=== PATIENT | female | born 1985 | race Caucasian/White ===

== ENCOUNTER 2017-11-28 13:21 | Day surgery (SDC) | payer BC, OTHER ==
[2017-11-28 13:52] LABS: #Basophils 0.1 thou/uL (0.0-0.2); #Eosinphils 0.2 thou/uL (0.0-0.7); #Lymphocytes 2.1 thou/uL (1.20-3.40); #Monocytes 0.7 thou/uL (0.11-0.59); #Neutrophils 8.2 thou/uL (1.40-6.50); %Basophils 0.9 % (0.0-1.0); %Eosinophils 1.6 % (0.0-10.0); %Lymphocytes 18.3 % (21.0-51.0); %Monocytes 6.1 % (0.0-10.0); Hemoglobin 14.4 g/dL (12.0-16.0); Mean Corpuscular HGB CONC 33.6 g/dL (32.0-36.0); Mean Corpuscular Hemoglobin 30.5 pg (27.0-31.0); Mean Platelet Volume 7.5 fL (7.4-10.4); Platelet Count 260 thou/uL (130-400); RBC Distribution Width 11.9 % (11.5-14.5); Red Blood Cell (RBC) Count 4.71 mill/uL (4.20-5.40); White Blood Cell (WBC) Count 11.3 thou/uL (4.8-10.8)
[2017-11-28 14:17] LABS: ALT (SGPT) 41 U/L (8-55); AST (SGOT) 27 U/L (5-34); Albumin 3.9 g/dL (3.5-5.0); Alkaline Phosphatase 48 U/L (40-150); Anion Gap 13 mmol/L (10-20); BUN (Urea Nitrogen) 9 mg/dL (7.0-18.7); Bilirubin, Total 0.3 mg/dL (0.2-1.2); Calc. Creatinine Clearance 0 mL/min (70-130); Calcium 9.9 mg/dL (7.8-10.44); Carbon Dioxide 25 mmol/L (22-29); Chloride 102 mmol/L (98-107); Estimated GFR-MDRD Greater than 90; Globulin 3.3 g/dL (2.4-3.5); Glucose 81 mg/dL (70-105); Potassium 3.5 mmol/L (3.5-5.1); Protein, Total 7.2 g/dL (6.0-8.3); Sodium 136 mmol/L (136-145)
[2017-11-28 14:55] VITALS: BMI 28.5
[2017-11-28] MEDS ORDERED: FLU VACC QS2017-18 36 mo. & older 0.5 ML SYRINGE IM ONE (16:00)
--- NOTE | 2017-11-28 19:03 | SS ---
DATE OF SERVICE: 11/28/2017 EVALUATING PHYSICIAN: Stuart Connolly M.D. REGULAR PHYSICIAN: [facility]. CHIEF COMPLAINT: Vaginal bleeding. HISTORY OF PRESENT ILLNESS: Ms. Coleman is a 32-year-old G2, P1-0-0-1 with an estimated date of confi nement of 04/04/2018, now at 21 weeks who presents complaining of vaginal spotting when she wipes and uses the restroom. She states she had intercourse last night. She denies bright red vaginal bleedi ng, ruptured membranes, or abdominal pain. Her care has been at the Clinic and has been reportedly uncomplicated. She had an ultrasound 2 weeks ago, which I have a copy and there wer e no problems with the ultrasound and her placenta was noted to be anterior. PAST OBSTETRICAL HISTORY: Remarkable for previous vaginal delivery 10 years ago. PAST MEDICAL HISTORY: Unremarkable. PAST SURGICAL HISTORY: None. CURRENT MEDICATIONS: vitamins. ALLERGIES: BACTRIM. SOCIAL HISTORY: She denies tobacco or alcohol use. PHYSICAL EXAMINATION: VITAL SIGNS: Stable. She is afebrile. ABDOMEN: Soft and nontender. There is no guarding or rebound. The fundus is just above the umbilic us and is nontender. GENITOURINARY: Sterile speculum exam shows a small amount of dark blood in the vault. There is no a ctive bleeding. CERVIX: The cervix is visually closed. On bimanual exam, the cervix is noted to be closed and high in the vault. heart tones are noted. No uterine activity is seen. GEOSCIENCE PROFESSOR-3 testing returns with a negative result for Trichomonas, Gardnerella and Belinda. ASSESSMENT: 1. A 21-week intrauterine . 2. Postcoital bleeding. 3. No evidence of ruptured membranes or labor. PLAN: The patient will be dismissed home now with precautions. These were reviewed with her in [facility]. She was told to follow up with the clinic at her next appointment. She voiced understanding of her discharge instructions and was sent home in good condition.
== END 2017-11-28 16:55 | disposition home or self-care (01) ==
LOC: ERS 13:21 → L&D/OP 14:06 → ER/OP 14:06 → L&D/OP 16:55
PROVIDERS: ATTEND Obstetrics & Gynecology
DX: O46.92 Antepartum hemorrhage, unspecified, second trimester (principal); Z79.899 Other long term (current) drug therapy; Z88.2 Allergy status to sulfonamides; Z88.8 Allergy status to other drugs, medicaments and biological substances; Z3A.21 21 weeks gestation of pregnancy
CPT/HCPCS: 36415; 80053; 84702; 85025; 87480; 87510; 87660; 99284

== ENCOUNTER 2018-01-21 18:04 | Day surgery (SDC) | payer OTHER ==
--- NOTE | 2018-01-21 19:11 | PDOC.LDHP ---
Labor and Delivery H&P Chief complaint: loss of fluid HPI: 32 yo @ 29w4d by LMP c/w 9w US presents for fluid leaking since Sunday night. She states that the fluid is colorless and odorless. She states that it hasn't increased, but consistently occurs when she lays down. She states that she has been wetting her underwear each time she lays down. She states she has not had intercourse since November per medical office. She states she has not had any vaginal bleeding. She does admit to movement. She denies headaches , abdominal pain, lower extremity swelling, or vision changes. No other complaints at this time. Current gestational age (weeks): 29 (29.4) Due date: 04/05/18 Dating criteria: last menstrual period Grav: 2 Para: 1 Current complications: none Abnormal US findings: No Current medications: pre-bjorn vitamins Social history: none - Physical Exam Vital signs reviewed and normal: yes General: NAD, resting Heart: RRR Lungs: nonlabored breathing Abdomen: NTTP Extremeties: no edema FHT: category 1 [place] contractions every: 2-3 min - Vaginal Exam cm dilated: 0 (Fingertip) Effacement: 90% Station: -2 - OB Labs Antibody Screen: negative HIV: negative RPR: negative HEPSAg: negative 1 hour GCT: negative GBS: negative Urine drug screen: not done Rubella: immune - Assessment L&D Assessment: labor 32 yo @ 29.4 wk by LMP c/w 9.0 wk US presents for loss of fluid 1. Labor rule out Premature ROM - Amnisure - Fibronectin - VP3 - UA - Transvaginal US - Will await results and make treatment changes from there. - Plan Plan: observation in L&D <Shukri Solis - Last Filed: 01/21/18 20:47> <Romina Melendez - Last Filed: 01/21/18 23:58> Allergies/Adverse Reactions: Allergies Allergy/AdvReac Type Severity Reaction Status Date / Time sulfamethoxazole Allergy Severe Verified 11/28/17 14:52 [From Bactrim] trimethoprim [From Bactrim] Allergy Severe Verified 11/28/17 14:52 Latex, Natural Rubber Allergy Verified 01/21/18 18:53 Attending Addendum - Attending Addendum Date/Time: 01/21/18 [id number] I personally evaluated the patient and discussed the management with Dr. Solis on 01/21/18. I agree with the History, Examination, Assessment and Plan documented above with any addition or exceptions noted below. Patient presents with concern for SROM and PTL. Cat 1 FHTs, CTX q2-3. Cervical length 3.5 with neg FFN, Amnisure negative with normal ASHWIN. SVE shows thin clear discharge, no blood or pooling, / which remained unchanged. UA unremarkable and VP3 still pending. Patient declined GC/CT, recommend as outpatient when follows up with PCP. PTL and SROM ruled out, likely physiologic discharge and dehydration causing Florence Hansen. Monitor closely as an outpatient. Will follow up on VP3 when results. <Romina Melendez - Last Filed: 01/21/18 23:58>
[2018-01-21 19:26] VITALS: BP 118/64; TEMP 99.1; BMI 29.7
[2018-01-21] MEDS ORDERED: Lactated Ringer's 1,000 ML IV SCH (19:45)
[2018-01-21 20:08] LABS: Bilirubin Negative (Negative); Blood, Urine Negative (Negative); Clarity TURBID (Clear); Glucose, Urine (Dipstick) Negative (Negative); Leukocyte Negative (Negative); Nitrite Negative (Negative); Protein, Urine (Dipstick) Negative (Neg-Trace); Specific Gravity, Urine 1.016 (1.002-1.036); Urobilinogen 0.2 mg/dL (0.2-1.0); pH, Urine 7.5 (5.0-9.0)
[2018-01-21 20:10] LABS: Bacteria/HPF None Seen HPF (None Seen); Hyaline Casts/LPF 4-6 HYALINE CAST LPF (0-3 Hyaline); Pathc Cast-AUWi Flag 0.58 (0-2.49); RBC/HPF 0-3 HPF (0-3); WBC/HPF 0-3 HPF (0-3)
[2018-01-21 20:19] LABS: Crystals/HPF 2+ AMORPH PHOS HPF (Negative); Renal Epithelial 0-3 HPF (0-3); Transitional Epithelial 0-3 HPF (0-3)
[2018-01-21 20:20] LABS: Amnisure Internal Control QC ACCEPTABLE (ACCEPTABLE); Amnisure Test No Membranes Rupture (No Rupture)
[2018-01-21 20:32] LABS: FFN Internal QC Analyzer PASS (PASS); FFN Internal QC Cassette PASS (PASS); Fetal Fibronectin Negative (Negative)
--- NOTE | 2018-01-21 21:15 | ULT ---
OB ULTRASOUND LIMITED: HISTORY: Loss of fluid. Presents for fluid leaking since Sunday. TECHNIQUE: Sagittal and transverse imaging of a gravid uterus is performed. FINDINGS: Single intrauterine gestation, vertex presentation. Limited evaluation of the cervix due to shadowin g. The cervix appears to be approximately 3.5 cm. Anterior placenta. No evidence of previa. heart tones with a rate of 152 beats per minute. Amniotic fluid index is 14.6 cm. BIOMETRY: BPD: 7.85 cm (31 weeks 4 days) HEAD CIRCUMFERENCE: 28.70 cm (31 weeks 4 days) ABDOMINAL CIRCUMFERENCE: 25.97 cm (30 weeks 1 day) FEMUR LENGTH: 5.54 cm (29 weeks 1 day) AVERAGE AGE BY SONOGRAPHY: 30 weeks 3 days. ESTIMATED DATE OF DELIVERY: 03/29/2018 ESTIMATED WEIGHT: 1504 g, plus or minus 223 g. Limited survey due to advanced gestational age. Bladder and three-vessel cord appear to be marcelina ntified. Four-chamber heart is noted. IMPRESSION: 1. Single gestation with heart tones. Average age by sonography is 30 weeks 3 days. 2. Amniotic fluid index is 14.6 cm, which is near the median for a gestational age of 30 weeks. 3. Cervical length is somewhat difficult to appreciate but appears to be approximately 3.4 cm. POS: [facility]
== END 2018-01-21 22:01 | disposition home or self-care (01) ==
LOC: L&D/OP 18:04
PROVIDERS: ATTEND Family Medicine
DX: O26.893 Other specified pregnancy related conditions, third trimester (principal); Z3A.29 29 weeks gestation of pregnancy; Z79.899 Other long term (current) drug therapy; Z88.2 Allergy status to sulfonamides; Z88.1 Allergy status to other antibiotic agents; Z91.040 Latex allergy status
CPT/HCPCS: 51701; 76815; 81001; 82731; 84112; 87480; 87510; 87660; 99285

== ENCOUNTER 2018-08-08 07:18 | Emergency (ER) | payer OTHER, SELFPAY ==
[2018-08-08 07:56] LABS: #Eosinphils 0.2 thou/uL (0.0-0.7); #Monocytes 0.7 thou/uL (0.11-0.59); %Basophils 0.5 % (0.0-1.0); %Eosinophils 1.9 % (0.0-10.0); %Monocytes 8.8 % (0.0-10.0); %Neutrophils 50.8 % (42.0-75.0); Hemoglobin 16.4 g/dL (12.0-16.0); Mean Corpuscular HGB CONC 33.7 g/dL (32.0-36.0); Mean Corpuscular Hemoglobin 30.7 pg (27.0-31.0); Mean Corpuscular Volume 91.2 fL (78.0-98.0); Mean Platelet Volume 7.7 fL (7.4-10.4); Platelet Count 335 thou/uL (130-400); RBC Distribution Width 11.6 % (11.5-14.5); Red Blood Cell (RBC) Count 5.34 mill/uL (4.20-5.40); White Blood Cell (WBC) Count 7.8 thou/uL (4.8-10.8)
[2018-08-08 07:57] LABS: Hyaline Casts/LPF 0-3 HYALINE CAST LPF (0-3 Hyaline); Pathc Cast-AUWi Flag 0.43 (0-2.49); Yeast-AUWi Flag 61.7 (0-25.0)
[2018-08-08 07:58] LABS: Bilirubin Unable to Interpret (Negative); Blood, Urine Unable to Interpret (Negative); Clarity Hazy (Clear); Glucose, Urine (Dipstick) Unable to Interpret mg/dL (Negative); Leukocyte Unable to Interpret (Negative); Nitrite Unable to Interpret (Negative); Protein, Urine (Dipstick) Unable to Interpret mg/dL (Neg-Trace); Urobilinogen UNABLE TO INTERPRET mg/dL (0.2-1.0)
[2018-08-08 08:07] LABS: Bacteria/HPF 1+ HPF (None Seen); RBC/HPF 0-3 HPF (0-3); Renal Epithelial 0-3 HPF (0-3); Specific Gravity, Urine 1.007 (1.002-1.036); Squamous Epithelial 0-3 HPF (0-3); Transitional Epithelial 0-3 HPF (0-3)
[2018-08-08 08:08] LABS: Pregnancy Test - Urine (BHCG) Negative (Negative); Pregu Control Background? CLEAR/WHITE (CLR/WHITE); Pregu Control Bar Appear? YES (CONTROL BAR); Specific Gravity 1.007 (1.002-1.036); Yeast-All Forms None Seen HPF (None Seen)
[2018-08-08 08:10] LABS: ALT (SGPT) 27 U/L (8-55); AST (SGOT) 23 U/L (5-34); Albumin 4.5 g/dL (3.5-5.0); Alkaline Phosphatase 58 U/L (40-150); Anion Gap 13 mmol/L (10-20); BUN (Urea Nitrogen) 16 mg/dL (7.0-18.7); Bilirubin, Total 0.6 mg/dL (0.2-1.2); Calc. Creatinine Clearance 0 mL/min (70-130); Calcium 9.6 mg/dL (7.8-10.44); Carbon Dioxide 26 mmol/L (22-29); Chloride 103 mmol/L (98-107); Estimated GFR-MDRD Greater than 90; Globulin 3.3 g/dL (2.4-3.5); Glucose 98 mg/dL (70-105); Potassium 3.6 mmol/L (3.5-5.1); Protein, Total 7.8 g/dL (6.0-8.3); Sodium 138 mmol/L (136-145)
[2018-08-08] MEDS ORDERED: Ondansetron PF 4 MG/2 ML Vial ONE (08:41)
[2018-08-08] MEDS ORDERED: Morphine 4 MG/ML VIAL ONE (08:43)
[2018-08-08] MEDS ORDERED: Metoclopramide HCl 10 MG/2 ML VIAL ONE (09:19)
--- NOTE | 2018-08-08 10:31 | CT ---
CT ABDOMEN AND PELVIS WITH IV CONTRAST: Date: 08/08/18 HISTORY: Left lower abdominal pain and left flank pain associated with hematuria, nausea, and vomiting. FINDINGS: The lung bases are clear. The liver, spleen, pancreas, adrenal glands, and right kidney are normal. N o calcified gallstones are seen. There is asymmetric delay of enhancement of the left kidney compared to the right, with left hydroure teronephrosis secondary to a 4.0 mm calculus in the left distal ureter close to the UVJ. No right-ramila ed hydroureteronephrosis is seen. No free air, free fluid, or lymphadenopathy is noted in the abdomen or pelvis. A normal appearing eulogio endix is noted. Uterus and ovaries are present. IMPRESSION: 4.0 mm obstructing left distal ureteric calculus. POS: C
[2018-08-08] MEDS ORDERED: Ketorolac Tromethamine 30 MG/ML VIAL ONE (11:06)
[2018-08-08] MEDS ORDERED: Iopamidol 370 76% 100 ML VIAL ONE (16:19)
[2018-08-12 01:02] LABS: Chlamydia by PCR Inconclusive (NotDetected); GC by PCR Inconclusive (NotDetected)
== END 2018-08-08 11:51 | disposition home or self-care (01) ==
LOC: ERS 07:18
DX: N13.2 Hydronephrosis with renal and ureteral calculous obstruction (principal); R11.0 Nausea
CPT/HCPCS: 36415; 74177; 80053; 81003; 81015; 81025; 85025; 87086; 87480; 87491; 87510; 87591; 87660; 96365; 96366; 96375; J1885; J2270; J2405; J2765

== ENCOUNTER 2018-08-10 02:48 | Emergency (ER) | payer SELFPAY ==
[2018-08-10 03:20] LABS: #Eosinphils 0.1 thou/uL (0.0-0.7); #Lymphocytes 2.3 thou/uL (1.20-3.40); #Monocytes 0.6 thou/uL (0.11-0.59); #Neutrophils 10.8 thou/uL (1.40-6.50); %Basophils 0.2 % (0.0-1.0); %Eosinophils 0.6 % (0.0-10.0); %Lymphocytes 16.7 % (21.0-51.0); %Monocytes 4.3 % (0.0-10.0); %Neutrophils 78.2 % (42.0-75.0); Hemoglobin 16.4 g/dL (12.0-16.0); Mean Corpuscular HGB CONC 33.9 g/dL (32.0-36.0); Mean Corpuscular Hemoglobin 31.2 pg (27.0-31.0); Mean Corpuscular Volume 92.3 fL (78.0-98.0); Platelet Count 335 thou/uL (130-400); RBC Distribution Width 11.6 % (11.5-14.5); Red Blood Cell (RBC) Count 5.24 mill/uL (4.20-5.40); White Blood Cell (WBC) Count 13.8 thou/uL (4.8-10.8)
[2018-08-10 03:20] LABS: Bilirubin Negative (Negative); Blood, Urine Trace (Negative); Clarity Hazy (Clear); Glucose, Urine (Dipstick) Negative (Negative); Leukocyte Negative (Negative); Nitrite Negative (Negative); Protein, Urine (Dipstick) Negative (Neg-Trace); Urobilinogen 0.2 mg/dL (0.2-1.0); pH, Urine 8.5 (5.0-9.0)
[2018-08-10 03:21] LABS: Bacteria/HPF Rare-Few HPF (None Seen); Pathc Cast-AUWi Flag 0.43 (0-2.49); RBC/HPF 0-3 HPF (0-3)
[2018-08-10 03:28] LABS: Crystals/HPF 2+ AMORPH PHOS HPF (Negative); Hyaline Casts/LPF NONE SEEN LPF (0-3 Hyaline)
[2018-08-10] MEDS ORDERED: Morphine 4 MG/ML VIAL ONE (03:28)
[2018-08-10] MEDS ORDERED: Ondansetron PF 4 MG/2 ML Vial ONE (03:28)
[2018-08-10 03:41] LABS: ALT (SGPT) 23 U/L (8-55); AST (SGOT) 19 U/L (5-34); Albumin 4.7 g/dL (3.5-5.0); Alkaline Phosphatase 56 U/L (40-150); Anion Gap 11 mmol/L (10-20); BUN (Urea Nitrogen) 11 mg/dL (7.0-18.7); Bilirubin, Total 0.4 mg/dL (0.2-1.2); Calc. Creatinine Clearance 0 mL/min (70-130); Calcium 10.1 mg/dL (7.8-10.44); Carbon Dioxide 28 mmol/L (22-29); Chloride 102 mmol/L (98-107); Estimated GFR-MDRD 90; Globulin 3.4 g/dL (2.4-3.5); Glucose 137 mg/dL (70-105); Potassium 4.2 mmol/L (3.5-5.1); Protein, Total 8.1 g/dL (6.0-8.3); Sodium 137 mmol/L (136-145)
[2018-08-10] MEDS ORDERED: Ketorolac Tromethamine 30 MG/ML VIAL ONE (03:53)
== END 2018-08-10 04:57 | disposition home or self-care (01) ==
LOC: ERS 02:48
DX: N23 Unspecified renal colic (principal)
CPT/HCPCS: 36415; 80053; 81003; 81015; 85025; 87086; 96361; 96374; 96375; J1885; J2270; J2405

== ENCOUNTER 2020-12-22 09:40 | Emergency (ER) | payer OTHER, SELFPAY ==
[2020-12-22] MEDS ORDERED: Boostrix 0.5 ML (Tdap) VIAL ONE (10:34)
[2020-12-22] MEDS ORDERED: Bacitracin 1 PK ONE (10:57)
== END 2020-12-22 11:00 | disposition home or self-care (01) ==
LOC: ERS 09:40
DX: S61.451A Open bite of right hand, initial encounter (principal); W54.0XXA Bitten by dog, initial encounter
CPT/HCPCS: 90471; 90715

== ENCOUNTER 2021-06-24 10:25 | Emergency (ER) | payer OTHER ==
[2021-06-24 12:45] LABS: ALT (SGPT) 36 U/L (8-55); AST (SGOT) 35 U/L (5-34); Albumin 4.2 g/dL (3.5-5.0); Alkaline Phosphatase 45 U/L (40-110); Anion Gap 14 mmol/L (10-20); BUN (Urea Nitrogen) 7 mg/dL (7.0-18.7); Bilirubin, Total 0.3 mg/dL (0.2-1.2); Calc. Creatinine Clearance 0 mL/min (70-130); Calcium 8.7 mg/dL (7.8-10.44); Carbon Dioxide 26 mmol/L (22-29); Chloride 103 mmol/L (98-107); Globulin 3.2 g/dL (2.4-3.5); Glucose 116 mg/dL (70-105); Protein, Total 7.4 g/dL (6.0-8.3); Sodium 139 mmol/L (136-145)
[2021-06-24 12:47] LABS: #Lymphocytes 1.6 thou/uL (1.20-3.40); #Monocytes 0.3 thou/uL (0.11-0.59); #Neutrophils 2.7 thou/uL (1.40-6.50); %Basophils 0.1 % (0.0-1.0); %Eosinophils 0.5 % (0.0-10.0); %Lymphocytes 34.4 % (21.0-51.0); %Monocytes 5.6 % (0.0-10.0); %Neutrophils 59.4 % (42.0-75.0); Hemoglobin 17.1 g/dL (12.0-16.0); Mean Corpuscular HGB CONC 34.9 g/dL (32.0-36.0); Mean Corpuscular Hemoglobin 32.1 pg (27.0-31.0); Mean Platelet Volume 8.6 fL (7.4-10.4); Platelet Count 144 thou/uL (130-400); RBC Distribution Width 11.9 % (11.5-14.5); Red Blood Cell (RBC) Count 5.31 mill/uL (4.20-5.40); White Blood Cell (WBC) Count 4.5 thou/uL (4.8-10.8)
[2021-06-24 16:47] LABS: SARS-CoV-2 PCR by NAA DETECTED (NotDetected)
== END 2021-06-24 12:58 | disposition home or self-care (01) ==
LOC: ERS 10:25
DX: U07.1 COVID-19 (principal); J12.82 Pneumonia due to coronavirus disease 2019; J45.909 Unspecified asthma, uncomplicated
CPT/HCPCS: 71045; 80053; 85025; U0003; U0005

== ENCOUNTER 2022-12-30 00:19 | Emergency (ER) | payer OTHER, SELFPAY ==
[2022-12-30 00:51] LABS: Bacteria/HPF 2+ HPF (None Seen); Bilirubin Negative (Negative); Blood, Urine Negative (Negative); Calcium Oxalate Crystals 3+ HPF (None Seen); Clarity Turbid (Clear); Glucose, Urine (Dipstick) Normal (Negative); Ketone, Urine Negative (Negative); Leukocyte 500 Leu/uL (Negative); Mucous/LPF Rare LPF (<2+); Nitrite Negative (Negative); Protein, Urine (Dipstick) 20 mg/dL (Neg-Trace); RBC/HPF 0-3 HPF (0-3); Specific Gravity, Urine 1.028 (1.002-1.036); WBC/HPF Greater than 50 HPF (0-3); pH, Urine 6.5 (5.0-9.0)
[2022-12-30 00:52] LABS: Pregnancy Test - Urine (BHCG) Negative (Negative); Pregu Control Background? CLEAR/WHITE (CLR/WHITE); Pregu Control Bar Appear? YES (CONTROL BAR); Specific Gravity 1.028 (1.002-1.036)
[2022-12-30 01:50] LABS: #Eosinphils 0.2 thou/uL (0.0-0.7); #Lymphocytes 1.2 thou/uL (1.20-3.40); %Basophils 0.3 % (0.0-1.0); %Eosinophils 1.2 % (0.0-10.0); %Lymphocytes 8.2 % (21.0-51.0); %Neutrophils 83.5 % (42.0-75.0); Hemoglobin 16.1 g/dL (12.0-16.0); Mean Corpuscular HGB CONC 34.5 g/dL (32.0-36.0); Mean Corpuscular Hemoglobin 31.3 pg (27.0-31.0); Mean Corpuscular Volume 90.7 fl (78.0-98.0); Mean Platelet Volume 8.2 fL (7.4-10.4); Platelet Count 218 10x3/uL (130-400); RBC Distribution Width 11.7 % (11.5-14.5); Red Blood Cell (RBC) Count 5.14 mill/uL (4.20-5.40); White Blood Cell (WBC) Count 14.3 10x3/uL (4.8-10.8)
[2022-12-30 02:15] LABS: ALT (SGPT) 23 U/L (8-55); AST (SGOT) 20 U/L (5-34); Albumin 4.2 g/dL (3.5-5.0); Alkaline Phosphatase 46 U/L (40-110); Anion Gap 10 mmol/L (10-20); BUN (Urea Nitrogen) 11 mg/dL (7.0-18.7); Bilirubin, Total 0.5 mg/dL (0.2-1.2); Calc. Creatinine Clearance 0 mL/min (70-130); Calcium 9.1 mg/dL (7.8-10.44); Carbon Dioxide 26 mmol/L (22-29); Chloride 106 mmol/L (98-107); Estimated GFR 117; Globulin 3.2 g/dL (2.4-3.5); Glucose 88 mg/dL (70-105); Lipase 55 U/L (8-78); Potassium 3.4 mmol/L (3.5-5.1); Protein, Total 7.4 g/dL (6.0-8.3); Sodium 139 mmol/L (136-145)
== END 2022-12-30 04:28 ==
LOC: ERS 00:19
DX: Z53.21 Procedure and treatment not carried out due to patient leaving prior to being seen by health care provider (principal)
CPT/HCPCS: 36415; 80053; 81003; 81015; 81025; 83690; 85025

== ENCOUNTER 2022-12-30 07:44 | Emergency (ER) | payer SELFPAY ==
[2022-12-30] MEDS ORDERED: Ketorolac Tromethamine 30 MG/ML VIAL ONE (10:42)
[2022-12-30] MEDS ORDERED: Ondansetron PF 4 MG/2 ML Vial ONE (10:42)
== END 2022-12-30 11:55 | disposition home or self-care (01) ==
LOC: ERS 07:44
DX: N12 Tubulo-interstitial nephritis, not specified as acute or chronic (principal)
CPT/HCPCS: 74176; 87086; 96361; 96374; J1885; J2405

== ENCOUNTER 2023-01-01 09:25 | Emergency (ER) | payer SELFPAY ==
[2023-01-01 11:07] LABS: Bacteria/HPF None Seen HPF (None Seen); Bilirubin Negative (Negative); Blood, Urine Negative (Negative); Clarity Clear (Clear); Glucose, Urine (Dipstick) Normal (Negative); Ketone, Urine Negative (Negative); Leukocyte 25 Leu/uL (Negative); Nitrite Negative (Negative); Protein, Urine (Dipstick) Negative (Neg-Trace); RBC/HPF 0-3 HPF (0-3); Squamous Epithelial 0-3 HPF (0-3); Urobilinogen Normal mg/dL (Less than 2); WBC/HPF 0-3 HPF (0-3); pH, Urine 6.5 (5.0-9.0)
== END 2023-01-01 11:41 | disposition home or self-care (01) ==
LOC: ERS 09:25
DX: N39.0 Urinary tract infection, site not specified (principal)
CPT/HCPCS: 81003; 81015; 99283

== ENCOUNTER 2024-05-18 09:49 | Emergency (ER) | payer SELFPAY ==
[2024-05-18 10:17] LABS: #Basophils 0.07 10x3/uL (0.0-0.2); %Basophils 1.2 % (0.0-1.0); %Eosinophils 1.5 % (0.0-10.0); %Lymphocytes 31.4 % (21.0-51.0); %Monocytes 10.1 % (0.0-10.0); %Neutrophils 55.6 % (42.0-75.0); Hematocrit 44.3 % (36.0-47.0); Hemoglobin 15.8 g/dL (12.0-16.0); Mean Corpuscular HGB CONC 35.7 g/dL (32.0-36.0); Mean Corpuscular Hemoglobin 31.2 pg (27.0-31.0); Mean Corpuscular Volume 87.5 fL (78.0-98.0); Mean Platelet Volume 10.4 fL (7.4-10.4); Platelet Count 245 10x3/uL (130-400); Red Blood Cell (RBC) Count 5.06 mill/uL (4.20-5.40)
[2024-05-18 11:07] LABS: ALT (SGPT) 13 U/L (8-55); AST (SGOT) 15 U/L (5-34); Alkaline Phosphatase 42 U/L (40-110); Anion Gap 14 mmol/L (10-20); BUN (Urea Nitrogen) 10 mg/dL (7.0-18.7); Bilirubin, Total 0.4 mg/dL (0.2-1.2); Calc. Creatinine Clearance 0 mL/min (70-130); Calcium 9.6 mg/dL (7.8-10.44); Carbon Dioxide 23 mmol/L (22-29); Chloride 106 mmol/L (98-107); Estimated GFR 115; Glucose 94 mg/dL (70-105); Potassium 3.9 mmol/L (3.5-5.1); Sodium 139 mmol/L (136-145)
[2024-05-18 11:53] LABS: Troponin I Less than 0.010 ng/mL (< 0.028)
[2024-05-18 12:33] LABS: Troponin I Less than 0.010 ng/mL (< 0.028)
== END 2024-05-18 13:37 | disposition home or self-care (01) ==
LOC: ERS 09:49
DX: R07.9 Chest pain, unspecified (principal); R51.9 Headache, unspecified; R00.2 Palpitations; J45.909 Unspecified asthma, uncomplicated; Z55.6 Problems related to health literacy; Z87.891 Personal history of nicotine dependence
CPT/HCPCS: 36415; 71045; 80053; 84484; 85025; 93005

== ENCOUNTER 2024-10-01 04:58 | Emergency (ER) | payer OTHER, SELFPAY ==
[2024-10-01 06:07] LABS: Bacteria/HPF None Seen HPF (None Seen); Bilirubin Negative (Negative); Blood, Urine Negative (Negative); CAUTI Indications for Culture Pelvic or flank pain; Clarity Turbid (Clear); Glucose, Urine (Dipstick) Normal (Negative); Ketone, Urine Negative (Negative); Leukocyte Negative Leu/uL (Negative); Nitrite Negative (Negative); Protein, Urine (Dipstick) Negative (Neg-Trace); RBC/HPF 0-3 HPF (0-3); Squamous Epithelial 0-3 HPF (0-3); Urobilinogen Normal mg/dL (Less than 2); WBC/HPF 0-3 HPF (0-3)
[2024-10-01 06:08] LABS: Pregnancy Test - Urine (BHCG) Negative (Negative); Pregu Control Background? CLEAR/WHITE (CLR/WHITE); Pregu Control Bar Appear? YES (CONTROL BAR); Urine Culture Reflex No No
== END 2024-10-01 06:52 | disposition home or self-care (01) ==
LOC: ERS 04:58
DX: R10.9 Unspecified abdominal pain (principal); Z87.891 Personal history of nicotine dependence
CPT/HCPCS: 81001; 81025; 99284

== ENCOUNTER 2024-10-07 18:40 | Emergency (ER) | payer SELFPAY ==
[2024-10-07] MEDS ORDERED: Acetaminophen 500 MG TAB ONE (19:22)
[2024-10-07] MEDS ORDERED: diphenhydrAMINE 50 MG/ML VIAL ONE (19:22)
[2024-10-07] MEDS ORDERED: Dexamethasone 10 MG/ML VIAL ONE (19:22)
[2024-10-07] MEDS ORDERED: Metoclopramide HCl 10 MG (2 mL) VIAL ONE (19:23)
[2024-10-07] MEDS ORDERED: Ondansetron ODT 4 MG TAB ONE (19:52)
== END 2024-10-07 20:57 ==
LOC: ERS 18:40
DX: R51.9 Headache, unspecified (principal); R11.2 Nausea with vomiting, unspecified; Z87.891 Personal history of nicotine dependence
CPT/HCPCS: 87428; 99284; J1100; J1200; J2765; Q0162

== ENCOUNTER 2025-06-05 07:28 | Emergency (ER) | payer OTHER, SELFPAY | END 2025-06-05 08:15 | disposition home or self-care (01) | LOC: ERS 07:28 | DX: S90.31XA Contusion of right foot, initial encounter (principal); W22.09XA Striking against other stationary object, initial encounter; Z87.891 Personal history of nicotine dependence | CPT/HCPCS: 99283 ==